=== PATIENT | female | born 1950 | race Caucasian/White ===

== ENCOUNTER 2024-09-16 01:00 | Observation (INO) | payer MEDICARE, OTHER, SELFPAY ==
[2024-09-15 19:52] VITALS: BP 101/80
[2024-09-15 20:02] VITALS: BP 137/72; BMI 17.7
[2024-09-15] MEDS: NSS 1000 IV (20:43)
[2024-09-15 20:55] LABS: ALT (SGPT) 25 U/L (0-35); AST (SGOT) 34 U/L (14-36); Albumin 4.9 g/dl (3.5-5.0); Alkaline Phosphatase 55 U/L (38-126); Blood Urea Nitrogen 16 mg/dl (7-17); Calcium 9.9 mg/dl (8.4-10.2); Carbon Dioxide 24 mmol/L (22-30); Chloride 104 mmol/L (98-107); Estimated Creatinine Clearance 60 ml/min; Glucose 116 mg/dl (70-99); Lipase 216 U/L (23-300); Potassium 4.6 mmol/L (3.5-5.1); Sodium 141 mmol/L (135-145); Total Protein 7.9 g/dl (6.3-8.2); eGFR > 60.00
[2024-09-15 21:00] VITALS: BP 120/66
[2024-09-15 21:11] LABS: Troponin I 0.044 ng/ml
[2024-09-15 21:27] LABS: % Basophils 0.3 % (0-2); % Eosinophils 0.8 % (0-6); % Immature Granulocytes 0.3 % (0-0.5); % Lymphocytes 4.4 % (20.5-51.1); % Monocytes 6.4 % (1.7-9.3); % Neutrophils 87.8 % (42.2-75.2); Absolute Basophils 0.1 10^3/uL (0-0.2); Absolute Eosinophils 0.2 10^3/uL (0-0.7); Absolute Immature Granulocytes 0.1 10^3/uL (0-0.05); Absolute Lymphocytes 0.8 10^3/uL (1.2-3.4); Absolute Monocytes 1.1 10^3/uL (0.1-0.6); Absolute Neutrophils 15.7 10^3/uL (1.4-6.5); Hematocrit 45.6 % (37.0-47.0); Hemoglobin 14.9 g/dL (12.0-16.0); Mean Corp Hgb Conc. 32.7 g/dL (33.0-37.0); Mean Corpuscular Hgb 31.5 pg (27.0-31.0); Mean Corpuscular Volume 96.4 fL (81.0-99.0); Mean Platelet Volume 9.7 fL (7.4-10.4); Nucleated Red Blood Cells % 0 %; Platelet Count 263 10^3/uL (130-400); Red Blood Cell Count 4.73 10^6/uL (4.20-5.40); Red Cell Dist. Width 12.3 % (11.5-14.5); White Blood Cell Count 17.9 10^3/uL (4.8-10.8)
--- NOTE | 2024-09-15 21:33 | ED.GENMED ---
History of Present Illness
General
Chief Complaint: Abdominal Symptoms
Source: patient
Exam Limitations: none
Time Seen by Provider: 09/15/24 21:22
Nursing documentation reviewed up to this point in time: agreed with
History of Present Illness
History of Present Illness:
Patient is a 74 old female who presents to the ER for evaluation. Patient reports she recently got back from [place] on Monday 4 days ago when she walked into her house she' saw people in my house.' She reports some people' did not have faces,'
'there faces were covered with pillows.' She tells me she is not sure if she was hallucinating. She remembers' telling the mall to leave.' Since then she has been sleeping a lot and he was up for 17 hours the other night but did wake up with
diarrhea and because she has not felt right she came to the ER. She had a syncopal episode in triage. She does remember feeling like she was going to pass out while she was in triage.
She denied any chest pain prior to episode and denies any chest pain now.
I spoke with daughter on the phone who reports pt did not feel well today and complained of stomach pain and had vomiting and diarrhea.
Daughter also mentions and patient does agree that she had mosquito bites or little red bumps that she thought were mosquito bites while in [place] they have currently resolved.
Patient denies any fever or chills at home. She denies any headache neck pain back pain rash. Daughter does report the patient either seem delusional or was hallucinating when she first got back into her house from the airport on Monday night
and thought she saw people in her house.
Review of Systems
Review of Systems
Allergies reviewed?: Yes
Other source history: family (( I spoke with daughter over the phone )
All Other Systems: ROS reviewed and negative except as documented in HPI and ROS
Constitutional: Reports fatigue ('feels tired' ); Denies fever
EENT: Reports no symptoms
Respiratory: Reports no symptoms
Cardiac: Reports no symptoms
ABD/GI: Reports diarrhea; Denies abdominal pain
Musculoskeletal: Reports no symptoms
Skin: Reports other (pt had 'bug bite' to back resolved now )
Psychiatric: Reports hallucinations (pt reported she believes she was hallucinating several nights ago )
Phy Exam
General Physical Exam
General Presentation: no apparent distress
General age: appears stated age
General Skin: warm and dry
General Habitus: elderly
General Mental: alert
General Hydration: dry mucous membranes
Cardiovascular Exam
Cardiovascular Exam: regular rate/rhythm, no murmur and normal peripheral pulses
Pulmonary Exam
Pulmonary Exam: lungs clear and no respiratory distress
Gastrointestinal Exam
Gastrointestinal Exam: normal bowel sounds, non tender and soft
Neurological Exam
Neurological Exam: alert and oriented x3
Bam Coma Scale
Eye Opening: Spontaneous
Verbal Response: Oriented
Motor Response: Obeys Commands
GCS Total Score: 15
Musculoskeletal Exam
Musculoskeletal Exam: full ROM
Skin Exam
Skin Exam: normal color and warm/dry
Psychiatric Exam
Psychiatric Exam: normal mood/affect
Course
Orders/Labs/Results
Orders:
Orders
09/15/24 20:08
Electrocardiogram (*1) Urgent
Reason for Study: Syncope
EKG- Treatment ONCE
Comprehensive Metabolic Panel Urgent
Lipase Urgent
09/15/24 20:09
Troponin I Urgent
09/15/24 20:43
0.9% Sodium Chloride 1000 ml [Nss] 1,000 ml IV BOLUS
09/15/24 21:21
Complete Blood Count/With Diff Urgent
09/15/24 21:48
UA Reflex to Culture [Urinalysis Reflex To Culture] Urgent
Date Specimen was Collected: 09/15/24
Time Specimen was Collected: 22:24
09/15/24 21:49
CT Head W/o Iv Contrast Urgent
Comment:
Reason For Exam: change in ms
09/15/24 22:03
Lactic Acid Urgent
09/15/24 22:27
C DIFF [C difficile Antigen & Toxins] Urgent
LARISA Source: Feces/Stool
Specimen Description:
Date Specimen was Collected: 09/15/24
Time Specimen was Collected: 22:24
Norovirus by PCR Urgent
LARISA Source: ST
Specimen Description:
Date Specimen was Collected: 09/15/24
Time Specimen was Collected: 22:24
Comment: ADD ON
Stool Culture Urgent
LARISA Source: Feces/Stool
Specimen Description:
Date Specimen was Collected: 09/15/24
Time Specimen was Collected: 22:24
09/15/24 22:48
Ondansetron Injectable [Zofran] 4 mg IV NOW STA
09/15/24 23:00
Add On- LAB Urgent
Tests Added?: sed rate ,crp
09/15/24 23:09
Procalcitonin Urgent
PCT Algorithmm Indication: Sepsis
Blood Culture Q30M
LARISA Source: Blood/Venous
Specimen Description:
Blood Culture Q30M
LARISA Source: Blood/Venous
Specimen Description:
09/15/24 23:49
CefTRIAXone [Rocephin] 1,000 mg IV NOW STA
09/15/24 23:52
COVID-19 Antigen Urgent
Source: Nasal Swab
Blood Parasites Urgent
LARISA Source: Blood/Venous
Specimen Description:
Influenza A+B Rapid Molecular Urgent
LARISA Source: Nasal Swab
Specimen Description:
09/16/24 00:35
Admit/Transfer Patient As Directed
Co-Sign Provider:
Level of Care: Observation services
Assign to:: Telemetry
Physician / Group: Ricki
Diagnosis: Altered Mental Status
Reason for Telemetry: Arrhythmia
Date to Stop Telemetry: 09/19/24
Time to Stop Telemetry: 11:00
Reason for Hospitalization: Altered Mental Status
Expected length of stay greater than two midnights?: Yes
ELOS- Estimated Length of Stay in days: 3
I certify the patient meets the requirements for IP care: Yes
PRN Pain Medication Management As Directed
May give lesser potent ordered pain med per pt: Yes
preference::
Protocol:: Medication orders for pain may be administered in a
manner that supports deferring to patient preference
when the pt is:
- Requesting an ordered lesser potent pain medication.
Least to most potent pain medications are defined
as: acetaminophen < NSAID < tramadol < opioids
(morphine, oxycodone, hydromorphone).
- Requesting a lesser dose of the same medication IF
ORDERED.
- Requesting a less intrusive route of administration
if both routes are prescribed by the provider (PO <
IV).
09/16/24 00:36
Code Status As Directed
Resuscitation Status: Full Code
09/16/24 01:25
0.9% Sodium Chloride 1000 ml [Nss] 1,000 ml IV 100 mls/hr
Acetaminophen [Tylenol] 650 mg PO Q4HPRN PRN
Ondansetron Injectable [Zofran] 4 mg IV Q6HPRN PRN
09/16/24 01:25
INFECTIOUS DISEASE CONSULT Routine
Consulting Provider: Iveth Corcoran
Was physician already notified: Yes
Reason for consult: Altered Mental Status
Activity As Directed
Activity Level: Ambulate
With Assistance
EKG with chest pain [ECG as needed] As Directed
ECG as needed for:: Chest Pain
I/O [Intake/ Output] As Directed
Frequency: Per unit guidelines
Neurological Checks As Directed
Frequency: q4h
Orthostatic Vital Signs As Directed
Orthostatic VS Frequency: BID
Pneumatic Compression Sleeves As Directed
Type: Knee high
Vital Signs As Directed
Frequency: Per unit guidelines
Weight As Directed
Frequency: Daily
Oxygen Therapy [O2 Therapy] [RESP] Routine
Titrate/Wean O2 to maintain O2 sat greater than (%): 94
Ot Eval And Treat Routine
PT Consult [Pt Eval And Treat] Routine
Activity Level: Ambulate
With Assistance
DX Deep Vein Thrombosis Video Routine
09/16/24 02:08
TSH Reflex To Free T4 Routine
Troponin I Q6H
09/16/24 06:00
EKG [Electrocardiogram (*1)] IN AM
Reason for Study: Chest Pain
Regular
At Your Request: Full Participation
Oral Supplement (If unsure of flavor order apple or vanilla): Ensure Enlive Vanilla
Supplement Frequency: Daily
09/16/24 07:36
Complete Blood Count/No Diff IN AM
Troponin I Q6H
Blood Parasites IN AM
LARISA Source: Blood/Venous
Specimen Description:
Comment: Second slide / intentional repeat please.
09/16/24 13:12
Troponin I Q6H
09/16/24 18:00
Enoxaparin Sodium [Lovenox] 40 mg SC QPM
09/16/24 22:00
CefTRIAXone [Rocephin] 2,000 mg IV Q24H
09/19/24 11:00
DC Protocol for Telemetry ONCE
Abnormal Lab Results
09/15/24 09/15/24 09/15/24
20:08 20:09 21:21
WBC 17.9 H 10^3/uL
(4.8-10.8)
MCH 31.5 H pg
(27.0-31.0)
MCHC 32.7 L g/dL
(33.0-37.0)
Abs Immat Gran (auto) 0.1 H 10^3/uL
(0-0.05)
Absolute Neuts (auto) 15.7 H 10^3/uL
(1.4-6.5)
Absolute Lymphs (auto) 0.8 L 10^3/uL
(1.2-3.4)
Absolute Monos (auto) 1.1 H 10^3/uL
(0.1-0.6)
Neutrophils % 87.8 H %
(42.2-75.2)
Lymphocytes % 4.4 L %
(20.5-51.1)
Glucose 116 H mg/dl
(70-99)
Troponin I 0.044 H* ng/ml
09/15/24 21:21
09/15/24 20:08
Vital Signs
Initial and Last Documented VS:
Initial Vital Signs
Temp Pulse Resp BP Pulse Ox
98.4 F 96 18 101/80 98
09/15/24 19:52 09/15/24 19:52 09/15/24 19:52 09/15/24 19:52 09/15/24 19:52
Last Documented Vital Signs
Temp Pulse Resp BP Pulse Ox
98.4 F 83 17 111/56 96
09/16/24 12:04 09/16/24 12:04 09/16/24 12:04 09/16/24 12:04 09/16/24 12:04
Food Truck Caterer consulted with Physician
Food Truck Caterer consulted with physician?: Yes
Name of Physician Consulted: DR Jiménez
MDM/Problems Addressed
Differential Diagnosis Includes:
Not limited to infection, sepsis, encephalitis, less likely meningitis, colitis, influenza, COVID
MDM/Problems Addressed:
Patient is document is a 74-year-old female who recently came back from [facility] 4 days ago and had hallucinations. Since then she is felt very fatigued and doing a lot of sleeping. She had nausea vomiting abdominal pain today prior to
arrival and presented via EMS and had a syncopal episode in triage. She did feel like she was going to have a syncopal episode and reports she felt lightheaded while in triage. She presents awake alert she is able to give history. She denies any
headache recent fever chills. She denies any abdominal pain now her abdomen is soft and nontender.
She appears dehydrated however chemistries are unremarkable. She is afebrile however her white count is elevated her lactic is negative. Patient denies any chest pain no acute findings on EKG her troponin is elevated no prior cardiac history.
She denies any headache fever chills. There is no meningismus or photophobia on exam.
Case discussed with ED physician. Case discussed with infectious disease on-call. Blood cultures x 2 were ordered lactic was done and negative. Will add COVID and flu. Stool culture was sent. Urine is done and pending. CT head negative. Will
check blood parasite smear.
*Radiology
Radiology exam reviewed: radiology read reviewed
*Pulse Oximetry
Patient hypoxic: no
*EKG
Interpreted by ED Provider?: Yes
Heart Rate: 88
Rate: normal
Rhythm: sinus
Ischemia: no ischemia
*Critical Care Note
Total Time (30-74mins, 75-104mins- exclusive of procedures): Not Applicable
Patient Management
Discussion with other providers: [employer] (ID : DR Corcoran)
ED Attending Note
-
Portions of this chart may have been created with voice recognition software.� Occasional wrong word or��sound alike� substitutions may have occurred due to the inherent limitations of voice recognition software.
Discharge Plan
Departure
Patient Disposition: Admit
Date of Disposition: 09/16/24
Time of Disposition: 00:14
Admit to: Med/Surg
Admit to doctor: hospitalist
Presentation/result/management discussed w/ accepting MD/DO: Hospitalist
Patient with high blood pressure during this ER visit?: No
Condition: Fair
Covid-19: Not Applicable
Discharge Problem:
change in mental status, Elevated troponin
Interventions
Interventions:
*Risk Screen - Suicide Last Done: 09/15/24 20:02
*General Assessment Last Done: 09/15/24 19:52
*Neglect/Abuse Screening Last Done: 09/15/24 20:02
ED- Fall Risk Assessment Last Done: 09/15/24 20:02
*ED COVID-19 Vaccine History Last Done: 09/15/24 20:02
*Nursing Disposition Last Done: 09/16/24 01:30
JS-Ffqgbl-Jndcfaomle Assessment Last Done: 09/15/24 20:02
Discharge Date and Time
Discharge Date/Time: 09/16/24 01:30
[2024-09-15 22:00] VITALS: BP 134/61
[2024-09-15 22:22] LABS: Lactic Acid 1.2 mmol/L (0.7-2.0)
[2024-09-15] MEDS: ZOFRAN 4 MG IV (22:52)
[2024-09-15 23:00] VITALS: BP 102/83
[2024-09-15] MEDS: ROCEPHIN 1000 MG IV (23:55)
[2024-09-16] VITALS (12 sets, daily range): BP systolic 108–151; BP diastolic 49–75; PULSE 82–109; O2SAT 98; BMI 17.7
[2024-09-16 00:08] LABS: Procalcitonin < 0.05 ng/ml (0.0-0.25)
[2024-09-16 00:26] LABS: COVID-19 Antigen Negative (Negative)
--- NOTE | 2024-09-16 00:52 | HPS.HSE ---
Family Physician
-
Family Physician: Judith Borges
Chief Complaint
-
Hallucinations / Fatigue
History of Present Illness
Patient is a 74y F with PMH significant for dyslipidemia who presents to ED complaining of hallucinations, weakness and N/V/D. Patient recently traveled to [facility] from 08/31 - 09/11. She notes that she received no vaccinations prior
to her trip and took no malaria prophylaxis during her stay. She states she spoke with a physician prior to travel and was informed no areas she would visit were endemic with malaria. Patient states that she was bitten on the back of the neck on
her first day in [place] by some biting insect - presumably mosquitos. She did travel into the countryside during her stay. She denies any unusual / exotic foods. She was very careful about not drinking tap water during her stay. Patient states
that she felt well her entire time on vacation.
She flew home on 09/11. On her way home from the airport she got a 'funny feeling' about her sprinkler driver and exited the car service somewhere in [facility]. Her daughter arranged for another car service to pick her up and bring her home.
Upon entering her home on Monday evening, patient noted that 'there were a lot of people there. No one I knew.' She noted that the people had featureless faces and ultimately realized that she must be hallucinating. She yelled at the people to
leave and they did. She was able to get to sleep and states that she felt fairly normal the following day.
She was with family on Monday when they celebrated Thanksgiving. She also felt well most of that day - though she states she felt very tired towards the evening. She slept 18 hours Monday into Monday, waking around 2PM.
She slept Monday until 5PM. Monday evening she began to have nausea and states that she had multiple episodes of non-bloody emesis and watery diarrhea at home. She called EMS and was brought to the ED for further evaluation.
In triage, patient was noted to have brief syncopal episode.
At present she is resting comfortably and has no specific complaints.
She denies headache, photophobia, fevers / chills, cough / SOB, abdominal pain, urinary symptoms, rash, joint pain, etc.
Patient states that she is on 'three medicines for cholesterol' though she cannot recall the names / doses.
Patient notes that she wore a scopolamine patch for her flights on 08/31 and again on 09/11. She took no other medication specifically for her trip.
Patient reports that she lost about 6 pounds during her vacation according to her home scale.
Medical History
Past Medical History
Past Medical History: Reports Other
Additional Past Medical History:
Dyslipidemia
Ovarian Cyst
Past Surgical History: Reports Other
Additional Past Surgical History:
Robotic Ovarian Cystectomy
Social History
Tobacco: Non-smoker
Alcohol: Occasional
Drug: None
Family History
Family History: Not pertinent
Allergies / Home Medications
Allergies reflects when Allergies were last updated in [employer].
Home Medications with original date entered in [employer]
Allergy/Medication List:
Allergies
Allergy/AdvReac Type Severity Reaction Status Date / Time
No Known Allergies Allergy Unverified 09/15/24 19:52
Home Medications
Unobtainable 09/16/24
Patient cannot recall the names / doses of her 3 current prescription medications.
Review of Systems
-
History Source: Patient
A 12 point ROS was completed and negative except as noted: Yes
Constitutional: Reports Weight Loss and Fatigue; Denies Fever or Chills
EENT: Denies Sore Throat
Respiratory: Denies Cough or Trouble Breathing
Cardiac: Reports Syncope; Denies Chest Pain or Palpitations
Abdomen/GI: Reports Nausea, Vomiting and Diarrhea; Denies Abdominal Pain, Bloody Stools, Black Stools or Anorexia
: Denies Dysuria, Frequency or Flank Pain
Musculoskeletal: Denies Joint Pain or Edema
Neurological: Reports Dizzy; Denies Headache, Weakness or Numbness
Psych: Reports Audio or Visual Hallucinations; Denies Depression or Anxiety
Physical Exam
Vital Signs
Vital Signs
Temp Pulse Resp BP Pulse Ox
98.4 F 84 16 129/67 98
09/15/24 19:52 09/16/24 00:01 09/16/24 00:01 09/16/24 00:01 09/16/24 00:01
Physical Exam
General: Other (Thin 74y F in no acute distress.)
HEENT: PERRLA and Other (Dry MM. Neck supple. No adenopathy.)
Respiratory: Clear; No Wheezes, Rales or Rhonchi
Cardiac: S1/S2 and Regular Rhythm; No Murmur
GI: Soft, Non Tender, Non Distended and Normal Bowel Sounds
Musculoskeletal: No Clubbing, No Cyanosis and No Edema
Neuro: Awake, Alert and Nonfocal/grossly intact
Laboratory Results
-
09/15/24 21:21
09/15/24 20:08
Laboratory Results
Lactic Acid 1.2 mmol/L (0.7-2.0) 09/15/24 22:03
Total Bilirubin 1.0 mg/dl (0.2-1.3) 09/15/24 20:08
AST 34 U/L (14-36) 09/15/24 20:08
ALT 25 U/L (0-35) 09/15/24 20:08
Alkaline Phosphatase 55 U/L (38-126) 09/15/24 20:08
Troponin I 0.044 ng/ml H* 09/15/24 20:09
Lipase 216 U/L (23-300) 09/15/24 20:08
Impression/Plan
-
A/P: Patient is a 74y F with PMH significant for dyslipidemia who presents to ED for evaluation of hallucinations, confusion, fatigue and N/V/D.
Acute Mental Status Change
Visual Hallucinations
Fatigue / Weight Loss
N/V/D
Recent Travel
Leukocytosis
- Admit for further evaluation and treatment.
- Unclear etiology of her symptoms with hallucinations +/- confabulation - very odd story regarding her trip home from the airport.
- Afebrile, marked fatigue and with GI symptoms beginning today.
- CT head with atrophy but otherwise unremarkable. Labs unremarkable excepting leukocytosis.
- In [place] and [place] recently - including rural areas. No travel vaccinations and no malaria prophylaxis.
- Check parasite smear tonight and in AM.
- Blood cultures, stool cultures, viral panels, etc.
- Monitor for any new / focal symptoms or complaints.
- IVF support for clinical hypovolemia - though labs are unimpressive.
- ID recommendations appreciated. Formal eval in the AM.
- ? if presentation is new recognition of cognitive impairment / Alzheimer's / etc unmasked or exacerbated by recent travel, 'jet lag', etc?
DVT Prophylaxis: Lovenox
Code Status: Full
--- NOTE | 2024-09-16 01:20 | PTCARENOTE ---
Pt arrived from ED via stretcher, ambulated independently to bed. Aoox3, cooperative. denies dizziness, sob or pain. Oriented to room. Call lebron within reach.
[2024-09-16] MEDS: NSS 1000 IV ×3 (01:53→22:49)
[2024-09-16 02:46] LABS: Troponin I 0.037 ng/ml
[2024-09-16 03:24] LABS: TSH Reflex To Free T4 0.22 uIU/ml (0.47-4.68)
[2024-09-16 03:54] LABS: Free T4 1.35 ng/dl (0.78-2.19)
[2024-09-16 08:06] LABS: Hematocrit 33.8 % (37.0-47.0); Hemoglobin 11.8 g/dL (12.0-16.0); Mean Corp Hgb Conc. 34.9 g/dL (33.0-37.0); Mean Corpuscular Hgb 32.5 pg (27.0-31.0); Mean Corpuscular Volume 93.1 fL (81.0-99.0); Mean Platelet Volume 9.9 fL (7.4-10.4); Platelet Count 209 10^3/uL (130-400); Red Blood Cell Count 3.63 10^6/uL (4.20-5.40); Red Cell Dist. Width 12.5 % (11.5-14.5); White Blood Cell Count 12.8 10^3/uL (4.8-10.8)
[2024-09-16 08:14] LABS: Troponin I 0.035 ng/ml
--- NOTE | 2024-09-16 08:35 | W.PN.HOSP.TC ---
Today's Communication/Plan
-
Monitor
Assessment / Plan
Assessment / Plan
74y F with PMH significant for dyslipidemia who presents to ED for evaluation of hallucinations, confusion, fatigue and N/V/D.
Acute Mental Status Change
Visual Hallucinations
Fatigue / Weight Loss
N/V/D
Recent Travel
Leukocytosis
- Unclear etiology of her symptoms with hallucinations +/- confabulation - very odd story regarding her trip home from the airport.
- Afebrile, marked fatigue and with GI symptoms
- CT head with atrophy but otherwise unremarkable. Labs unremarkable excepting leukocytosis.
- In [place] and [place] recently - including rural areas. No travel vaccinations and no malaria prophylaxis.
- Follow-up parasite smear, blood cultures, viral panels, ID recommendations
- ? if presentation is new recognition of cognitive impairment / Alzheimer's / etc unmasked or exacerbated by recent travel, 'jet lag', etc?
DVT Prophylaxis: Lovenox
Code Status: Full
Physical Exam
General: No acute distress
HEENT: Normocephalic, Atraumatic, EOMI, MMM
Respiratory: Clear to Auscultation bilaterally
Cardiac: Normal S1/S2, Regular Rate and Rhythm
GI: Soft, Nontender, Nondistended, Normal Bowel Sounds
Extremities: No Clubbing, Cyanosis, or Edema
Neuro: Nonfocal/Grossly Intact
Psych: Calm, Cooperative
Derm: No Visible lesions
Anticipated Discharge: Within 24 hours
Subjective/Interval History
-
Date of Service: September 16, 2024
Myalgias resolved. No recurrence of hallucinations. No fever. No chest pain, no shortness of breath.
Objective Data
-
Labs:
Laboratory Results
09/15/24 09/15/24 09/16/24
20:08 21:21 07:36
WBC Cancelled 17.9 H 12.8 H
Hgb Cancelled 14.9 11.8 L D
Hct Cancelled 45.6 33.8 L
Plt Count Cancelled 263 209 D
Sodium 141 Pending
Potassium 4.6 Pending
Chloride 104 Pending
Carbon Dioxide 24 Pending
BUN 16 Pending
Creatinine 0.6 Pending
Glucose 116 H Pending
Calcium 9.9 Pending
Total Bilirubin 1.0 Pending
AST 34 Pending
ALT 25 Pending
Alkaline Phosphatase 55 Pending
Vital Signs:
Vital Signs
Temp Pulse Resp BP Pulse Ox
98.1 F 84 17 124/55 96
09/16/24 03:23 09/16/24 03:23 09/16/24 03:23 09/16/24 03:23 09/16/24 03:23
[2024-09-16 08:38] LABS: ALT (SGPT) 18 U/L (0-35); AST (SGOT) 24 U/L (14-36); Albumin 3.4 g/dl (3.5-5.0); Alkaline Phosphatase 32 U/L (38-126); Blood Urea Nitrogen 15 mg/dl (7-17); Calcium 8.3 mg/dl (8.4-10.2); Carbon Dioxide 27 mmol/L (22-30); Chloride 104 mmol/L (98-107); Estimated Creatinine Clearance 60 ml/min; Glucose 87 mg/dl (70-99); Potassium 4.2 mmol/L (3.5-5.1); Sodium 138 mmol/L (135-145); Total Bilirubin 0.7 mg/dl (0.2-1.3); Total Protein 5.9 g/dl (6.3-8.2); eGFR > 60.00
--- NOTE | 2024-09-16 09:17 | PTOTSP ---
pt currently demonstrates ability to complete simple ADLs, functional transfers, ambulation with supervision to no assistance. pt demonstrates no acute OT needs, will sign off.
--- NOTE | 2024-09-16 09:22 | PTOTSP ---
PATIENT ABLE TO MOBILIZE INDEPENDENTLY ON LEVEL SURFACES WELL ELEVATIONS WITHOUT COMPLAINTS OF LIGHTHEADEDNESS OR DIZZINESS. VITALS STABLE, RN AWARE. PATIENT REQUIRING NO FURTHER ACUTE CARE SKILLED P.T. AT THIS TIME.
--- NOTE | 2024-09-16 10:21 | CM ---
Patient seen bedside.
IA completed.
Patient lives alone in a 2 story home.
Independent prior to admission.
Drives, retired.
patient has not had VN or skilled rehab in the past.
PT eval completed, no recommendations.
RAMOS form reviewed.
Patient plans on Ubering home.
PCP: Dr Borges
Pharmacy: [facility]
Plan: home no needs.
--- NOTE | 2024-09-16 10:52 | CON.ID ---
Addendum entered and electronically signed by Gifty Dutta MD 09/16/24 15:57:
I personally performed a history and physical exam of the patient and discussed management with the resident. I reviewed the resident's note and agree with the documented findings and plan of care HPI/CC.
74 yo female recent travel to [facility] and [facility] 08/31 to 09/11 with tour group. She did not receive any pre-travel vaccines nor malaria prophylaxis. + mosquito bites. Pt adherent to food safety. No water exposure. No animal bites. Not rainy
season. Did not visit any [place]. Upon return had episode of hallucination that evening. Of note, pt used scopolamine patch for motion sickness on her travel back to [place]. Spent Thanksgiving with family 09/13 then slept for 20hours. She then
woke up with N/V/D. No abd pain. No blood in stool. No one else if family ill. No fevers/chills. No SANDOVAL. No rash. No joint pain. Feels well. No further hallucinations. Diarrhea resolved. On presentation, WBC 17.9, CMP normal.
# Return traveler from [facility]; no pre-travel vaccines or malaria prophylaxis.
# Suspect traveler's diarrhea
# Leukocytosis - trending down
- C. diff neg
- Follow stool cultures
- Follow blood cx's
-Parasite smear x 2 neg to date.
- Transition ceftriaxone to azithromycin 500mg po qd x 2 more doses
- Follow wbc.
# s/p Syncopal episode - from dehydration
# Transient hallucination
-Suspect due to scopolamine patch
Discussed with Dr. Shakira Kendrick
Original Note:
Consultation
-
Date/Time Consultation Requested: 09/16/2024
Date/Time Consultation Performed: 09/16/2024
Requesting Provider: Db Robison DO
Performing Provider: Gifty Dutta MD
Reason for Consultation: Altered mental status
Chief Complaint / Past History
Chief Complaint
Confusion, hallucination
History of Present Illness
This is a 74-year-old female with past medical history of dyslipidemia, ovarian cyst who presents to ER 09/15/2024 complaining of hallucinations, weakness, nausea, vomiting and diarrhea. The patient recently traveled to [facility] and [facility] with
a tour group from 08/31 to 09/11. Prior to travel, the patient saw a physician who informed her of high risk of malaria infection. She received NO vaccinations prior to her trip and took no malaria prophylaxis during her stay at both countries.
The patient states she was bitten by mosquitoes multiple times on her first day in [place]. Although she made sure not to drink any tap water and drank only bottled water with NO ice during a trip. She did not eat any roadside foods. She ate
well-cooked seafood meals. Denied animal bites. She reports she felt well throughout the vacation with no acute complaints. She flew home 09/11 to celebrate Thanksgiving with her family. On returning back to [facility], she reports experiencing,
symptoms of dizziness, and episodes of seeing featureless faces. Patient states this episode occurred when she got home from the airport in the evening. She states there were a lot of people in her house. Although she states she did not know this
people, a lot of them had no faces. She realized she was hallucinating, and proceeded to sleep afterwards. She felt normal the next day and was able to celebrate Thanks with her family. She states she had no complaints, no episodes of
hallucination on . Later that night on 09/12 she reports sleeping for a total of 17 to 18 hours. Upon waking up, she started to experience nausea, vomiting and diarrhea. She reports episodes of nonbloody emesis and watery diarrhea
at home. Due to her multiple symptomatic episodes, she decided to call EMS to bring her to the ED for evaluation. She denies sick contacts in the household. She denies headaches, stiffness of neck, photophobia, fever, chills, cough, shortness of
breath, abdominal pain, palpitations, joint pain. She denied nausea, although she states she wore a scopolamine patch for flights to above countries and on return to the due to prior episodes of nausea while flying. She denies any medication
use during her trip except her cholesterol medication. On presentation to ER, patient was afebrile with blood pressure stable. Laboratory showed WBC 17.9. We are asked evaluate patient from an infectious disease standpoint.
Per nurse, patient's daughter states patient has a history of Paranoia and accusatory episodes ongoing for the past 4 years. Although, this is her first episode of visual hallucination.
Past History
Past Medical History: Other (Dyslipidemia, ovarian cyst)
Past Surgical History: Other (Ovarian cystectomy)
Allergy History:
No Known Allergies Allergy (Unverified 09/15/24 19:52)
Medications Reviewed: Yes
Current Antibiotics:
Ceftriaxone
Social History
Tobacco: Non-Smoker
Alcohol: Occasional
Drug: None
Review of Systems
Review of Systems
General: Negative Fever or Chills
HEENT: Negative Lymphadenopathy or Stiff Neck
Cardiovascular: Negative Chest Pain
Respiratory: Negative Dyspnea or Cough
Genital / Urological: Negative Dysuria
Endocrine: Fatigue
Musculoskeletal: Negative Joint Pain or Joint Swelling
Skin / Hair / Nails: Negative Rash
Neurological: Negative Headache
Vital Signs
Temp Pulse Resp BP Pulse Ox
98.5 F 85 17 130/56 97
09/16/24 07:45 09/16/24 07:45 09/16/24 07:45 09/16/24 07:45 09/16/24 07:45
Physical Exam
Physical Exam
Constitutional: No Acute Distress
Cardiovascular: Regular Rate and S1/S2
Pulmonary: Clear; Negative Wheezes, Rales or Rhonchi
Gastrointestinal: Soft, Non Tender and Non Distended
Extremities: Negative Edema or Clubbing
Neurological: AO x 3
Psychological: Calm
Lab / Diagnostic Study Results
09/16/24 07:36
09/16/24 07:36
Abs Immat Gran (auto) 0.1 10^3/uL (0-0.05) H 09/15/24 21:21
Absolute Neuts (auto) 15.7 10^3/uL (1.4-6.5) H 09/15/24 21:21
Absolute Lymphs (auto) 0.8 10^3/uL (1.2-3.4) L 09/15/24 21:21
Absolute Monos (auto) 1.1 10^3/uL (0.1-0.6) H 09/15/24 21:21
Absolute Basos (auto) 0.1 10^3/uL (0-0.2) 09/15/24 21:21
Immature Gran % 0.3 % (0-0.5) 09/15/24 21:21
Neutrophils % 87.8 % (42.2-75.2) H 09/15/24 21:21
Lymphocytes % 4.4 % (20.5-51.1) L 09/15/24 21:21
Monocytes % 6.4 % (1.7-9.3) 09/15/24 21:21
Eosinophils % 0.8 % (0-6) 09/15/24 21:21
Basophils % 0.3 % (0-2) 09/15/24 21:21
Lactic Acid 1.2 mmol/L (0.7-2.0) 09/15/24 22:03
Procalcitonin < 0.05 ng/ml (0.0-0.25) 09/15/24 23:09
Microbiology Results
Micro:
09/15/24 22:27 C. difficile GDH Antigen & Toxins - Final
Feces/Stool Negative for toxigenic C.difficile
- Pending
09/16/24 07:36 Blood Parasites Smear - Preliminary
Blood/Venous
09/15/24 23:52 Blood Parasites Smear - Preliminary
Blood/Venous
09/15/24 23:09 Blood Culture - Pending
Blood/Venous
09/15/24 23:09 Blood Culture - Pending
Blood/Venous
09/15/24 23:52 Influenza Types A & B (ROSIBEL) - Final
Nasal Swab Negative for Influenza A & B, NAAT
Negative results must be combined with clinical observations
and patient history.
Nucleic Acid Amplification test (NAAT)performed on the
[employer] platform.
09/15/24 22:27 Salmonella/Shigella Culture - Pending
Feces/Stool Campylobacter Culture - Pending
Shiga Toxin Test - Pending
Head CT without IV contrast 09/15/2024; no acute intracranial abnormality noted
Assessment / Plan
Assessment/plan
#Traveler's diarrhea
#Episode of visual hallucination
#Recent travel to [place] and [place] including rural areas
#Leukocytosis on presentation
-Visual hallucination possible due to Scopolamine patch use.
-Due to recent travel to malaria endemic area, check blood parasites smear.
-Check stool cultures, stool studies, C. difficile
-Flu, COVID-negative.
-Initiated on ceftriaxone in the ED
-At this time, will treat with Azithromycin 500 mg for an additional 2 days to complete 3 days of abx tx for traveler's diarrhea.
--- NOTE | 2024-09-16 13:48 | PTCARENOTE ---
This RN Spoke to patients daughter and primary contact, Kirstin. Patients daughter states that the paranoia and accusations from the patient have been going on for a couple of years now, however, hallucinations are new. Patient does not have a
diagnosed psych hx per daughter and daughter states patient has never seen a psych MD before. Hospitalist and ID made aware.
[2024-09-16 14:26] LABS: Troponin I 0.026 ng/ml
[2024-09-16] MEDS: ZITHROMAX 500 MG PO (14:40)
[2024-09-16 17:20] LABS: Vitamin B12 559 pg/ml (239-931)
[2024-09-16] MEDS: TYLENOL 650 MG PO (20:30)
--- NOTE | 2024-09-16 20:55 | PTCARENOTE ---
Pt woke up from sleep very anxious, shivering and crying c/o neck pain, leg pain and lower back pain, requesting to see a doctor. VS 151/75, 88, 22, T- 97.6, Pox 99% RA. Tylenol given, spent 1:1 time with pt, and screed person [employer] made aware. Pt fell
asleep shortly after. All above symptoms were resolved when pt woke up.
[2024-09-16 23:01] LABS: Urine Albumin Negative (Neg - Trace); Urine Bilirubin Negative (Negative); Urine Character Clear (Clear); Urine Color Straw; Urine Glucose Negative (Negative); Urine Ketone Negative (Negative); Urine Leukocyte 2+ (Negative); Urine Nitrite Negative (Negative); Urine Occult Blood 3+ (Negative); Urine Urobilinogen Negative (Neg - 1+)
[2024-09-16 23:22] LABS: Urine Squamous Cell 0-2 /LPF (Few)
[2024-09-16 23:23] LABS: Urine Bacteria Few (Negative)
[2024-09-17 02:56] VITALS: BP 151/80
[2024-09-17 05:18] VITALS: BMI 19.1
[2024-09-17 07:40] VITALS: BP 146/71
[2024-09-17 08:30] VITALS: BP 146/71
[2024-09-17] MEDS: NSS 1000 IV (08:41)
[2024-09-17] MEDS: ZITHROMAX 500 MG PO (08:42)
[2024-09-17 08:43] LABS: % Basophils 0.5 % (0-2); % Eosinophils 2.7 % (0-6); % Immature Granulocytes 0.9 % (0-0.5); % Monocytes 4.8 % (1.7-9.3); % Neutrophils 74.1 % (42.2-75.2); Absolute Eosinophils 0.2 10^3/uL (0-0.7); Absolute Immature Granulocytes 0.1 10^3/uL (0-0.05); Absolute Lymphocytes 1.1 10^3/uL (1.2-3.4); Absolute Monocytes 0.3 10^3/uL (0.1-0.6); Absolute Neutrophils 4.9 10^3/uL (1.4-6.5); Hematocrit 33.9 % (37.0-47.0); Hemoglobin 11.5 g/dL (12.0-16.0); Mean Corp Hgb Conc. 33.9 g/dL (33.0-37.0); Mean Corpuscular Volume 94.4 fL (81.0-99.0); Mean Platelet Volume 10.7 fL (7.4-10.4); Nucleated Red Blood Cells % 0 %; Platelet Count 198 10^3/uL (130-400); Red Blood Cell Count 3.59 10^6/uL (4.20-5.40); Red Cell Dist. Width 12.6 % (11.5-14.5); White Blood Cell Count 6.7 10^3/uL (4.8-10.8)
--- NOTE | 2024-09-17 08:45 | W.PN.HOSP.TC ---
Today's Communication/Plan
-
Discharge today
Assessment / Plan
Assessment / Plan
74y F with PMH significant for dyslipidemia who presents to ED for evaluation of hallucinations, confusion, fatigue and N/V/D.
Acute Mental Status Change
Visual Hallucinations 09/11/24
Transient confusion in hospital 09/16/24
-TSH mildly low, free T4 normal, B12 normal
-CT head with atrophy but otherwise unremarkable.
-Daughter informed nursing staff that patient tends to be paranoid at home
-No recurrence of hallucinations in the hospital, but she did have some confusion on the evening of 09/16/2024
-No confusion this morning, she is alert, awake, and eager for discharge
-Recommend she follows up with Dr. Silvino Birmingham for neuropsychiatric memory testing
-Offered to call her daughter, she states she does not want me to call her daughter
-Medically stable for discharge, follow-up with PCP in 1 week
Fatigue / Weight Loss
Traveler's diarrhea
- Appreciate ID input, parasite smear, blood cultures, viral panels, all negative
- She has completed 3 days of azithromycin, currently tolerating her diet
- Cleared by ID for discharge
DVT Prophylaxis: Lovenox
Code Status: Full
Physical Exam
General: No acute distress
HEENT: Normocephalic, Atraumatic, EOMI, MMM
Respiratory: Clear to Auscultation bilaterally
Cardiac: Normal S1/S2, Regular Rate and Rhythm
GI: Soft, Nontender, Nondistended, Normal Bowel Sounds
Extremities: No Clubbing, Cyanosis, or Edema
Neuro: Nonfocal/Grossly Intact
Psych: Calm, Cooperative
Derm: No Visible lesions
Anticipated Discharge: Today
Subjective/Interval History
-
Date of Service: September 17, 2024
Diarrhea resolved. No nausea, no vomiting. No fever.
Nursing staff reports patient was confused last night. When asked about this, she became visibly upset, and denied any confusion.
Objective Data
-
Labs:
Laboratory Results
09/17/24
06:58
WBC 6.7
Hgb 11.5 L
Hct 33.9 L
Plt Count 198
Vital Signs:
Vital Signs
Temp Pulse Resp BP Pulse Ox
98.6 F 80 16 146/71 96
09/17/24 07:40 09/17/24 07:40 09/17/24 07:40 09/17/24 07:40 09/17/24 07:40
I&O
09/16/24 09/17/24 09/18/24
06:59 06:59 06:59
Intake Total 2580 / 2580
Balance 2580 / 2580
--- NOTE | 2024-09-17 09:54 | W.PN.ID1 ---
Date of Service
Date of Service: September 17, 2024
Today's Communication
Completed abx.
Can dc home.
Assessment / Plan
# Return traveler from [place]; no pre-travel vaccines or malaria prophylaxis.
# Suspect traveler's diarrhea - resolved
# Leukocytosis - resolved
- C. diff neg
- blood cx's x 2 neg to datae
-Parasite smear x 2 neg to date.
- Completed 3 days of abx for traveller's diarrhea.
# Transient hallucination
-Suspect due to scopolamine patch
Can dc home.
Chief Complaint
-: Other
Subjective / Review of Systems
feels good today. no diarrhea
Vital Signs / Physical Exam
Vital Signs
Vital Signs
Temp Pulse Resp BP Pulse Ox
98.6 F 80 16 146/71 96
09/17/24 07:40 09/17/24 07:40 09/17/24 07:40 09/17/24 07:40 09/17/24 07:40
Physical Exam
Constitutional: No Acute Distress and Comfortable
Cardiovascular: Regular Rate and S1/S2
Pulmonary: Clear
Gastrointestinal: Soft, Non Tender, Non Distended and Normal Bowel Sounds
Extremities: Negative Edema
Neurological: AO x 3
Objective Data
Lab Data
Lab Results
09/17/24 06:58
09/16/24 07:36
Estimated Creat Clear 60 ml/min 09/16/24 07:36
Lactic Acid 1.2 mmol/L (0.7-2.0) 09/15/24 22:03
Total Bilirubin 0.7 mg/dl (0.2-1.3) 09/16/24 07:36
AST 24 U/L (14-36) 09/16/24 07:36
ALT 18 U/L (0-35) 09/16/24 07:36
Alkaline Phosphatase 32 U/L (38-126) L 09/16/24 07:36
Most recent labs reviewed.
Micro Results:
09/15/24 23:09 Blood Culture - Preliminary
Blood/Venous No Growth in 24 hours- Final report to follow
09/15/24 23:09 Blood Culture - Preliminary
Blood/Venous No Growth in 24 hours- Final report to follow
09/16/24 22:50 Urine Culture - Pending
Urine
09/16/24 07:36 Blood Parasites Smear - Final
Blood/Venous
09/15/24 23:52 Blood Parasites Smear - Final
Blood/Venous
09/15/24 22:27 C. difficile GDH Antigen & Toxins - Final
Feces/Stool Negative for toxigenic C.difficile
- Final
Negative for Norovirus GI and GII.
09/15/24 23:52 Influenza Types A & B (ROSIBEL) - Final
Nasal Swab Negative for Influenza A & B, NAAT
Negative results must be combined with clinical observations
and patient history.
Nucleic Acid Amplification test (NAAT)performed on the
[employer] platform.
09/15/24 22:27 Salmonella/Shigella Culture - Pending
Feces/Stool Campylobacter Culture - Pending
Shiga Toxin Test - Pending
Head CT without IV contrast 09/15/2024; no acute intracranial abnormality noted
Care Review
Plan reviewed with: Physician (Dr. Roger Kendrick)
--- NOTE | 2024-09-17 09:57 | W.DCSUMMARY ---
Discharge Summary
Discharge Data
Date of Admission: 09/16/24
Date of Discharge: 09/17/24
-
Pending Results: No
Hospital Course
Discharge diagnosis:
Traveler's diarrhea
Transient hallucinations prior to admission
Transient confusion in the hospital
Hospital course:
74-year-old female who [place] was admitted for nausea, vomiting, diarrhea, and myalgias. She also had transient hallucinations a few days prior to admission. Patient was seen in conjunction with ID. ID suspects
that she had traveler's diarrhea. She was treated with a full course of azithromycin. Parasite workup was negative. Her diarrhea resolved. She tolerated a diet.
Patient had transient hallucinations prior to hospital admission. ID suspects that this is due to the use of scopolamine patch. She did not have any recurrence of hallucinations.
During her hospitalization, she was noted to be confused during the evening. When asked about this, she became agitated and upset. Daughter reports to nursing staff that patient tends to be paranoid at home. Patient lives alone. She is 74 years
old, it is possible that she may have cognitive impairment suspicious for dementia, and could be sundowning. I recommended to her to follow-up with neuropsychiatry for memory testing. She did not want me to call her daughter and let her know.
Patient is medically stable for discharge. She needs to follow-up with her primary care doctor in 1 week, and neuropsychiatry in 1-2 weeks.
Disposition: Home self-care
Discharge planning: Required 50-minutes
Discharge Plan
-
Patient Disposition: Home (Routine Discharge)
Discharge Diagnosis/Procedures: Traveler's diarrhea, leukocytosis, transient hallucinations, transient confusion in hospital, syncope from dehydration
Condition: Fair
Diet: Regular
Activity: As tolerated
Driving Restrictions: As prior to admission
Activity Restrictions/Additional Instructions:
Recommend you get memory testing with Dr. Silvino Birmingham to obtain a baseline.
Please follow-up with your primary care provider in 1 week.
Referrals:
Judith Borges MD [Family Provider] - in one week
Silvino Birmingham PSY [Specified Professional Personl] - in one to two weeks
Prescriptions:
No Action
No Current Medications
0
Discharge Orders:
Discharge Patient (As Directed); Ordered 09/17/24
Ordered By: Juwan Kendrick
Discharge Date and Time
Discharge Date/Time: 09/17/24 10:52
Print Language: YAKUT
--- NOTE | 2024-09-17 10:08 | CM ---
Reviewed the chart notes and spoke with the patient at the bedside. Patient is discharged to home today. No needs identified. Patient will be taking an Uber home. CM continues to be available to patient/family and is monitoring medical plan for
needs at discharge.
Plan: Discharge to home today.
== END 2024-09-17 10:52 | disposition home or self-care (01) ==
LOC: 2 NORTH 01:00
PROVIDERS: Emergency Medicine; Nurse Practitioner; ADMITTING PHYSICIAN Hospitalist; ATTENDING PHYSICIAN Family Medicine; EMERGENCY PHYSICIAN Student in an Organized Health Care Education/Training Program; FAMILY PHYSICIAN Internal Medicine; OTHER PHYSICIAN Internal Medicine Infectious Disease
DX: R19.7 Diarrhea, unspecified (principal); R10.9 Unspecified abdominal pain; R44.1 Visual hallucinations; R55 Syncope and collapse; R11.2 Nausea with vomiting, unspecified; R53.83 Other fatigue; E86.0 Dehydration; E78.5 Hyperlipidemia, unspecified; D72.829 Elevated white blood cell count, unspecified; E86.1 Hypovolemia; G31.9 Degenerative disease of nervous system, unspecified; I49.1 Atrial premature depolarization; I51.7 Cardiomegaly; M79.10 Myalgia, unspecified site; R41.0 Disorientation, unspecified; R45.1 Restlessness and agitation; Z60.2 Problems related to living alone; Z11.52 Encounter for screening for COVID-19
CPT/HCPCS: 70450; 80053; 81003; 81015; 82248; 82607; 83605; 83690; 84145; 84439; 84443; 84484; 85025; 85027; 87015; 87040; 87045; 87046; 87077; 87086; 87207; 87324; 87427; 87449; 87502; 87798; 87811; 93005; 96361; 96374; 96375; 97116; 97162; 97165; 99285; G0378

== ENCOUNTER 2024-10-29 12:32 | Emergency (ER) | payer MEDICARE, OTHER, SELFPAY ==
[2024-10-29 12:45] VITALS: BP 143/82
[2024-10-29 12:57] LABS: % Basophils 1.3 % (0-2); % Eosinophils 3.2 % (0-6); % Immature Granulocytes 0.3 % (0-0.5); % Lymphocytes 25.4 % (20.5-51.1); % Monocytes 8.1 % (1.7-9.3); % Neutrophils 61.7 % (42.2-75.2); Absolute Basophils 0.1 10^3/uL (0-0.2); Absolute Eosinophils 0.2 10^3/uL (0-0.7); Absolute Lymphocytes 1.8 10^3/uL (1.2-3.4); Absolute Monocytes 0.6 10^3/uL (0.1-0.6); Absolute Neutrophils 4.3 10^3/uL (1.4-6.5); Hematocrit 39.9 % (37.0-47.0); Hemoglobin 13.5 g/dL (12.0-16.0); Mean Corp Hgb Conc. 33.8 g/dL (33.0-37.0); Mean Corpuscular Hgb 31.5 pg (27.0-31.0); Mean Corpuscular Volume 93.2 fL (81.0-99.0); Mean Platelet Volume 9.5 fL (7.4-10.4); Nucleated Red Blood Cells % 0 %; Platelet Count 260 10^3/uL (130-400); Red Blood Cell Count 4.28 10^6/uL (4.20-5.40); Red Cell Dist. Width 12.7 % (11.5-14.5); White Blood Cell Count 6.9 10^3/uL (4.8-10.8)
[2024-10-29 13:20] LABS: ALT (SGPT) 32 U/L (0-35); AST (SGOT) 31 U/L (14-36); Albumin 4.5 g/dl (3.5-5.0); Alkaline Phosphatase 39 U/L (38-126); Blood Urea Nitrogen 13 mg/dl (7-17); Calcium 9.3 mg/dl (8.4-10.2); Carbon Dioxide 32 mmol/L (22-30); Chloride 100 mmol/L (98-107); Glucose 151 mg/dl (70-99); Potassium 4.4 mmol/L (3.5-5.1); Sodium 139 mmol/L (135-145); Total Bilirubin 0.8 mg/dl (0.2-1.3); Total Protein 7.1 g/dl (6.3-8.2); eGFR > 60.00
[2024-10-29 14:39] VITALS: BP 140/75
--- NOTE | 2024-10-29 17:32 | ED.GENMED ---
History of Present Illness
<Nestor Gale PA-C - Last Filed: 10/29/24 18:54>
General
Chief Complaint: Dizziness
Source: patient
Exam Limitations: none
Time Seen by Provider: 10/29/24 17:13
History of Present Illness
History of Present Illness:
74-year-old female lives by herself presents via EMS with headache starting yesterday with an episode of dizziness today. She was walking and felt a spinning sensation. She was here about a month and a half ago for a syncopal workup.
Phy Exam
<Nestor Gale PA-C - Last Filed: 10/29/24 18:54>
Physical Exam
Physical Exam:
General: Well developed female NAD
HEENT: NC/AT
Heart: RRR, no murmurs
Lungs: CTA
Neuro: And oriented no facial asymmetry no nystagmus finger-nose intact good strength to the upper and lower extremities no dysarthria or aphasia
Extremities: No cyanosis or edema
Abdomen is soft nontender nondistended no guarding or rebound
Course
<Nestor Gale PA-C - Last Filed: 10/29/24 18:54>
Orders/Labs/Results
Orders:
Orders
10/29/24 12:33
Electrocardiogram (*1) Urgent
Reason for Study: Vertigo / Dizzy
EKG- Treatment ONCE
10/29/24 12:52
Complete Blood Count/With Diff Urgent
Comprehensive Metabolic Panel Urgent
10/29/24 17:24
CT Head W/o Iv Contrast Urgent
Comment:
Reason For Exam: headache, dizzy
Acetaminophen [Tylenol] 650 mg PO NOW STA
Abnormal Lab Results
10/29/24
12:52
MCH 31.5 H pg
(27.0-31.0)
Carbon Dioxide 32 H mmol/L
(22-30)
Creatinine 0.5 L mg/dL
(0.6-1.0)
Glucose 151 H mg/dl
(70-99)
10/29/24 12:52
10/29/24 12:52
Vital Signs
Initial and Last Documented VS:
Initial Vital Signs
Temp Pulse Resp BP Pulse Ox
98.6 F 97 20 143/82 100
10/29/24 12:45 10/29/24 12:45 10/29/24 12:45 10/29/24 12:45 10/29/24 12:45
Last Documented Vital Signs
Temp Pulse Resp BP Pulse Ox
98.0 F 76 20 142/76 98
10/29/24 14:39 10/29/24 21:00 10/29/24 21:00 10/29/24 21:00 10/29/24 21:00
<Dorothy Galindo PA-C - Last Filed: 10/29/24 22:37>
Orders/Labs/Results
Orders:
Orders
10/29/24 12:33
Electrocardiogram (*1) Urgent
Reason for Study: Vertigo / Dizzy
EKG- Treatment ONCE
10/29/24 12:52
Complete Blood Count/With Diff Urgent
Comprehensive Metabolic Panel Urgent
10/29/24 17:24
CT Head W/o Iv Contrast Urgent
Comment:
Reason For Exam: headache, dizzy
Acetaminophen [Tylenol] 650 mg PO NOW STA
Abnormal Lab Results
10/29/24
12:52
MCH 31.5 H pg
(27.0-31.0)
Carbon Dioxide 32 H mmol/L
(22-30)
Creatinine 0.5 L mg/dL
(0.6-1.0)
Glucose 151 H mg/dl
(70-99)
10/29/24 12:52
10/29/24 12:52
Vital Signs
Initial and Last Documented VS:
Initial Vital Signs
Temp Pulse Resp BP Pulse Ox
98.6 F 97 20 143/82 100
10/29/24 12:45 10/29/24 12:45 10/29/24 12:45 10/29/24 12:45 10/29/24 12:45
Last Documented Vital Signs
Temp Pulse Resp BP Pulse Ox
98.0 F 76 20 142/76 98
10/29/24 14:39 10/29/24 21:00 10/29/24 21:00 10/29/24 21:00 10/29/24 21:00
<Nestor Gale PA-C - Last Filed: 10/29/24 18:54>
MDM/Problems Addressed
Differential Diagnosis Includes:
Patient was slight headache elevated blood pressure reading upfront and an episode of dizziness. Dizziness has since resolved. Workup so far including negative labs. EKG shows sinus rhythm with 82 rate and no ischemic changes
No neurologic deficit on exam. Blood pressure has improved. Will order CT of head for reassurance
<Dorothy Galindo PA-C - Last Filed: 10/29/24 22:37>
*Critical Care Note
Total Time (30-74mins, 75-104mins- exclusive of procedures): Not Applicable
<Dorothy Galindo PA-C - Last Filed: 10/29/24 22:37>
Update Note
Update Note:
I received patient in sign out awaiting CT head results. CT head is negative for acute intracranial abnormalities. CT shows incidental finding of 'Slight parotid region soft tissue asymmetry which is most likely positional, head slightly tilted.
Suggest elective return follow-up Head CT, head not tilted for confirmation as parotid region mass on the right cannot be entirely excluded.' Findings discussed with patient. She denies any parotid fullness and no obvious asymmetry noted on exam.
Her dizziness has resolved and she is eating a boxed lunch on reassessment. No indication for hospitalization at this time. She was advised to f/u with her PCP and was discharged in stable condition.
ED Attending Note
<Nestor Gale PA-C - Last Filed: 10/29/24 18:54>
-
Portions of this chart may have been created with voice recognition software.� Occasional wrong word or��sound alike� substitutions may have occurred due to the inherent limitations of voice recognition software.
Discharge Plan
Departure
Patient Disposition: Home (Routine Discharge)
Date of Disposition: 10/29/24
Time of Disposition: 20:37
Patient with high blood pressure during this ER visit?: Yes
Discharge Problem:
Dizziness
Instructions: Dizziness
Prescriptions:
No Action
No Current Medications
0
Referrals:
Judith Borges MD [Family Provider] -
Activity Restrictions/Additional Instructions:
Your CT results: 'Slight parotid region soft tissue asymmetry which is most likely positional, head slightly tilted. Suggest elective return follow-up Head CT, head not tilted for confirmation as parotid region mass on the right cannot be entirely
excluded.'
Please return here for any worsening symptoms. Follow-up with your doctor otherwise to discuss your abnormal CT results.
Interventions
Interventions:
*Risk Screen - Suicide Last Done: 10/29/24 12:45
*General Assessment Last Done: 10/29/24 12:45
*Neglect/Abuse Screening Last Done: 10/29/24 12:45
ED- Fall Risk Assessment Last Done: 10/29/24 19:39
*ED COVID-19 Vaccine History Last Done: 10/29/24 19:40
*Nursing Disposition Last Done: 10/29/24 21:00
ED- Neurological Assessment Last Done: 10/29/24 19:39
ED Swallowing Screen Last Done: 10/29/24 19:39
Discharge Date and Time
Discharge Date/Time: 10/29/24 21:00
Print Language: [place]
[2024-10-29] MEDS: TYLENOL 650 MG PO (17:46)
[2024-10-29 19:20] VITALS: BP 144/75
[2024-10-29 21:00] VITALS: BP 142/76
== END 2024-10-29 21:00 | disposition home or self-care (01) ==
LOC: EMR 12:32
PROVIDERS: Emergency Medicine; EMERGENCY PHYSICIAN Emergency Medicine; FAMILY PHYSICIAN Internal Medicine
DX: R42 Dizziness and giddiness (principal)
CPT/HCPCS: 99284; 70450; 80053; 85025; 93005

== ENCOUNTER 2025-08-27 13:04 | Emergency (ER) | payer MEDICARE, OTHER, SELFPAY ==
[2025-08-27 13:12] VITALS: BP 150/69
[2025-08-27 13:28] LABS: Hematocrit 39.9 % (37.0-47.0); Hemoglobin 13.2 g/dL (12.0-16.0); Mean Corp Hgb Conc. 33.1 g/dL (33.0-37.0); Mean Corpuscular Volume 96.6 fL (81.0-99.0); Nucleated Red Blood Cells % 0 %; Platelet Count 261 10^3/uL (130-400); Red Cell Dist. Width 12.4 % (11.5-14.5)
[2025-08-27 13:45] LABS: ALT (SGPT) 15 U/L (0-35); AST (SGOT) 26 U/L (14-36); Albumin 4.5 g/dl (3.5-5.0); Alkaline Phosphatase 45 U/L (38-126); Blood Urea Nitrogen 13 mg/dl (7-17); Calcium 9.5 mg/dl (8.4-10.2); Carbon Dioxide 32 mmol/L (22-30); Chloride 102 mmol/L (98-107); Glucose 84 mg/dl (70-99); Potassium 4.5 mmol/L (3.5-5.1); Sodium 136 mmol/L (135-145); Total Protein 7.7 g/dl (6.3-8.2); eGFR > 60.00
[2025-08-27 13:57] LABS: Troponin I 0.014 ng/ml
[2025-08-27 15:33] VITALS: BP 148/68
--- NOTE | 2025-08-27 15:55 | ED.GENMED ---
History of Present Illness
General
Chief Complaint: Chest Pain
Source: patient
Exam Limitations: none
Time Seen by Provider: 08/27/25 15:42
Nursing documentation reviewed up to this point in time: agreed with
History of Present Illness
History of Present Illness:
Patient to the emergency department from urgent care for evaluation of left-sided chest pain. Pain is located on the left upper lateral chest wall. She states the pain started over the weekend. She is able to reproduce the pain with movement and
with palpation. She denies any history of known trauma. She does admit to using frequently lifting heavy objects. She denies any shortness of breath nausea vomiting or diaphoresis. No prior history of same. Pain does not radiate. She was
evaluated at urgent care this morning and advised to come to the ED with concerns for possible EKG changes. Brought self to the emergency department for evaluation.
Past History
Past History
ED Past Medical History: Hypercholesterolemia
Review of Systems
Review of Systems
Allergies reviewed?: Yes
All Other Systems: ROS reviewed and negative except as documented in HPI and ROS
Constitutional: Reports no symptoms
EENT: Reports no symptoms
Respiratory: Reports no symptoms
Cardiac: Reports no symptoms
ABD/GI: Reports no symptoms
: Reports no symptoms
Musculoskeletal: Reports other (Pain to left anterior upper lateral chest wall)
Skin: Reports no symptoms
Neurological: Reports no symptoms
Psychiatric: Reports no symptoms
Phy Exam
General Physical Exam
General Presentation: well appearing and no apparent distress
General age: appears stated age
General Skin: warm and dry
General Habitus: normal
General Mental: alert
Cardiovascular Exam
Cardiovascular Exam: regular rate/rhythm and no edema
Pulmonary Exam
Pulmonary Exam: lungs clear and no respiratory distress
Chest Wall: Left anterior: tenderness
Musculoskeletal Exam
Musculoskeletal Exam: full ROM, neuro vasc intact and other (Pain to left upper anterior lateral chest wall. Pain is reproducible with palpation and movement. No bruising redness or swelling noted)
Skin Exam
Skin Exam: normal color, warm/dry and no rash
Psychiatric Exam
Psychiatric Exam: normal mood/affect
Scores
Heart Score for Chest Pain Patients
STEMI patient?: No
History: Slightly or Non-Suspicious
ECG: Normal
Age: >/= 65 years
Risk Factors: No Risk Factors
Troponin: </= Normal Limit
Heart Score for Chest Pain Patients: 2
Heart Score Risk: 2.5% MACE over next 6 weeks
Course
Orders/Labs/Results
Orders:
Orders
08/27/25 13:05
Electrocardiogram (*1) Urgent
Reason for Study: Chest Pain
EKG- Treatment ONCE
08/27/25 13:20
Complete Blood Count/With Diff Urgent
Comprehensive Metabolic Panel Urgent
Troponin I Urgent
08/27/25 15:31
CR Chest - 2 Views Urgent
Comment:
Reason For Exam: chest pain
Abnormal Lab Results
08/27/25
13:20
RBC 4.13 L 10^6/uL
(4.20-5.40)
MCH 32.0 H pg
(27.0-31.0)
Absolute Neuts (auto) 6.6 H 10^3/uL
(1.4-6.5)
Absolute Monos (auto) 1.0 H 10^3/uL
(0.1-0.6)
Lymphocytes % 17.3 L %
(20.5-51.1)
Monocytes % 10.5 H %
(1.7-9.3)
Carbon Dioxide 32 H mmol/L
(22-30)
08/27/25 13:20
08/27/25 13:20
Vital Signs
Initial and Last Documented VS:
Initial Vital Signs
Temp Pulse Resp BP Pulse Ox
97.5 F 89 16 150/69 100
08/27/25 13:12 08/27/25 13:12 08/27/25 13:12 08/27/25 13:12 08/27/25 13:12
Last Documented Vital Signs
Temp Pulse Resp BP Pulse Ox
97.5 F 78 14 150/69 97
08/27/25 13:12 08/27/25 15:34 08/27/25 15:34 08/27/25 13:12 08/27/25 15:33
*Radiology
Radiology exam reviewed: radiology read reviewed
*Pulse Oximetry
SaO2: 97
Oxygen Mode of Delivery: Room air
Patient hypoxic: no
*Critical Care Note
Total Time (30-74mins, 75-104mins- exclusive of procedures): Not Applicable
Update Note
Update Note:
Patient to the emergency department for evaluation of left upper lateral anterior chest wall pain. Symptoms started over this past weekend. Pain is reproducible with palpation and movement. This she denies any history of trauma. Lungs are clear
to auscultation. Pulse ox is 99% on room air. EKG reviewed, NSR. Troponin is negative. Patient presentation consistent with musculoskeletal cause. Will recommend ice and Nsaids. He will be discharged home will follow-up with her family doctor.
She was given instructions on signs and symptoms to return to the emergency department and she was agreeable with this plan.
ED Attending Note
-
Portions of this chart may have been created with voice recognition software.� Occasional wrong word or��sound alike� substitutions may have occurred due to the inherent limitations of voice recognition software.
Discharge Plan
Departure
Patient Disposition: Home (Routine Discharge)
Date of Disposition: 08/27/25
Time of Disposition: 15:56
Patient with high blood pressure during this ER visit?: No
Condition: Good
Covid-19: Not Applicable
Discharge Problem:
Chest wall pain
Instructions: Ibuprofen, Cold therapy for pain, Musculoskeletal Pain
Prescriptions:
No Action
No Current Medications
0
Activity Restrictions/Additional Instructions:
Follow-up with your family doctor in 1 to 2 days. Return to the emergency department immediately for any changes in/worsening of your symptoms.
Interventions
Interventions:
*Risk Screen - Suicide Last Done: 08/27/25 15:54
*General Assessment Last Done: 08/27/25 15:54
*Neglect/Abuse Screening Last Done: 08/27/25 15:54
*ED COVID-19 Vaccine History Last Done: 08/27/25 15:54
*ED Influenza Vaccine History Last Done: 08/27/25 15:54
ED- Cardiac Assessment Last Done: 08/27/25 15:54
Discharge Date and Time
Print Language: MOHAWK
== END 2025-08-27 16:10 | disposition home or self-care (01) ==
LOC: EMR 13:04
PROVIDERS: EMERGENCY PHYSICIAN Emergency Medicine; FAMILY PHYSICIAN Internal Medicine
DX: R07.89 Other chest pain (principal); E78.00 Pure hypercholesterolemia, unspecified
CPT/HCPCS: 99285; 71046; 80053; 84484; 85025; 93005

== ENCOUNTER 2025-08-31 09:48 | Emergency (ER) | payer MEDICARE, OTHER, SELFPAY ==
[2025-08-31 09:52] VITALS: BP 141/71
--- NOTE | 2025-08-31 09:59 | ED.GENMED ---
History of Present Illness
General
Chief Complaint: Chest Pain
Source: patient
Exam Limitations: none
Time Seen by Provider: 08/31/25 09:52
History of Present Illness
History of Present Illness:
75-year-old female presents via EMSfrom home where she lives by herself with complaints of chest pain. The pain started this morning and is going from left to right and is made worse with breathing. She was here 4 days ago thought to have a
musculoskeletal chest wall pain as she injured her upper chest/armpit area on a car seat getting her grandson buckled in. Doing well all week up until this morning she developed more pain. She denies any recent travel or surgery. No leg swelling
or calf pain. She is not anticoagulated. She is fairly healthy otherwise
Past History
Past History
ED Past Medical History: Hypercholesterolemia
Phy Exam
Physical Exam
Physical Exam:
General: Well-appearing female no acute respiratory distress
HEENT: Normal cephalic atraumatic
Heart: Regular rate and rhythm
Lungs: Clear no wheeze
Abdomen is soft nontender
Musculoskeletal exam: The patient is tender over the anterior chest wall bilaterally
Extremities: No cyanosis or edema
Scores
Heart Score for Chest Pain Patients
STEMI patient?: No
History: Slightly or Non-Suspicious
ECG: Normal
Age: >/= 65 years
Risk Factors: No Risk Factors
Troponin: </= Normal Limit
Heart Score for Chest Pain Patients: 2
Heart Score Risk: 2.5% MACE over next 6 weeks
Course
Orders/Labs/Results
Orders:
Orders
08/31/25 09:52
Electrocardiogram (*1) Urgent
Reason for Study: Chest Pain
EKG- Treatment ONCE
08/31/25 09:59
CT Chest PE Study Urgent
Comment:
Reason For Exam: pleuritic chest pain
08/31/25 10:05
Complete Blood Count/With Diff Urgent
Comprehensive Metabolic Panel Urgent
Troponin I Urgent
Abnormal Lab Results
08/31/25
10:05
RBC 4.12 L 10^6/uL
(4.20-5.40)
MCHC 32.4 L g/dL
(33.0-37.0)
Monocytes % 10.1 H %
(1.7-9.3)
Carbon Dioxide 33 H mmol/L
(22-30)
Creatinine 0.5 L mg/dL
(0.6-1.0)
08/31/25 10:05
08/31/25 10:05
Vital Signs
Initial and Last Documented VS:
Initial Vital Signs
Temp Pulse Resp BP Pulse Ox
97.9 F 76 20 141/71 99
08/31/25 09:52 08/31/25 09:52 08/31/25 09:52 08/31/25 09:52 08/31/25 09:52
Last Documented Vital Signs
Temp Pulse Resp BP Pulse Ox
97.9 F 76 20 141/71 99
08/31/25 09:52 08/31/25 09:52 08/31/25 09:52 08/31/25 09:52 08/31/25 09:52
MDM/Problems Addressed
Differential Diagnosis Includes:
Patient with chest discomfort. Consider continuation of prior musculoskeletal chest wall pain versus PE versus ACS or dissection
Vital signs are stable. Will check labs EKG and troponin, given the recent visit and increased pain now that is pleuritic will order CAT scan of the chest to evaluate for PE
*Pulse Oximetry
Patient hypoxic: no
*Critical Care Note
Total Time (30-74mins, 75-104mins- exclusive of procedures): Not Applicable
Update Note
Update Note:
EKG shows sinus rhythm with rate of 69 no ischemic changes
Chest CT shows no evidence of pulmonary embolism lungs are clear but there is some thickening of the esophagus to suggest esophagitis. Will recommend holding off on NSAIDs for now and start PPI. No indication for admission. Stable for discharge
ED Attending Note
-
Portions of this chart may have been created with voice recognition software.� Occasional wrong word or��sound alike� substitutions may have occurred due to the inherent limitations of voice recognition software.
Discharge Plan
Departure
Patient Disposition: Home (Routine Discharge)
Date of Disposition: 08/31/25
Time of Disposition: 12:07
Patient with high blood pressure during this ER visit?: No
Discharge Problem:
Chest pain
Instructions: Acid Reflux and GERD in Adults (DC), Costochondritis (DC)
Prescriptions:
New
omeprazole 40 mg capsule,delayed release(DR/EC)
40 mg PO DAILY Qty: 14 0RF
Referrals:
Judith Borges MD [Family Provider, Internal Medicine]
Activity Restrictions/Additional Instructions:
Use Tylenol if needed for pain. Start omeprazole daily. Follow-up with your doctor. Return here if needed. As discussed it looks like your esophagus is slightly inflamed on the CAT scan
Interventions
Interventions:
*Risk Screen - Suicide Last Done: 08/31/25 09:52
*General Assessment Last Done: 08/31/25 09:52
*Neglect/Abuse Screening Last Done: 08/31/25 09:52
Discharge Date and Time
Print Language: LATVIAN
[2025-08-31 10:12] LABS: Hematocrit 39.2 % (37.0-47.0); Hemoglobin 12.7 g/dL (12.0-16.0); Mean Corp Hgb Conc. 32.4 g/dL (33.0-37.0); Mean Corpuscular Volume 95.1 fL (81.0-99.0); Nucleated Red Blood Cells % 0 %; Platelet Count 255 10^3/uL (130-400); Red Cell Dist. Width 12.5 % (11.5-14.5)
[2025-08-31 10:25] LABS: ALT (SGPT) 13 U/L (0-35); AST (SGOT) 19 U/L (14-36); Albumin 4.1 g/dl (3.5-5.0); Alkaline Phosphatase 38 U/L (38-126); Blood Urea Nitrogen 10 mg/dl (7-17); Calcium 9.2 mg/dl (8.4-10.2); Carbon Dioxide 33 mmol/L (22-30); Chloride 103 mmol/L (98-107); Estimated Creatinine Clearance 67 ml/min; Glucose 93 mg/dl (70-99); Potassium 4.0 mmol/L (3.5-5.1); Sodium 138 mmol/L (135-145); Total Protein 7.1 g/dl (6.3-8.2); eGFR > 60.00
[2025-08-31 10:36] LABS: Troponin I < 0.012 ng/ml
[2025-08-31 11:00] VITALS: BP 118/82
[2025-08-31 12:00] VITALS: BP 155/96
== END 2025-08-31 12:45 | disposition home or self-care (01) ==
LOC: EMR 09:48
PROVIDERS: EMERGENCY PHYSICIAN Emergency Medicine; FAMILY PHYSICIAN Internal Medicine
DX: R07.89 Other chest pain (principal); E78.00 Pure hypercholesterolemia, unspecified
CPT/HCPCS: 99284; 71275; 80053; 84484; 85025; 93005; Q9967

== ENCOUNTER 2025-09-02 08:41 | Emergency (ER) | payer MEDICARE, OTHER, SELFPAY ==
[2025-09-02 09:24] VITALS: BP 150/64
--- NOTE | 2025-09-02 09:32 | ED.GENMED ---
History of Present Illness
General
Chief Complaint: Extremity Pain (non-traumatic)
Source: patient
Time Seen by Provider: 09/02/25 09:20
History of Present Illness
History of Present Illness:
75-year-old female with past medical history of hyperlipidemia presenting to the emergency department for evaluation of a paresthesia sensation in her left hand that she noticed upon awakening this morning around 8 AM, symptoms now mostly resolved.
Patient was concerned because last week she was in the emergency department for a pain in her chest that while no specific etiology was found she states that she was told it was not her heart. Patient does note that just prior to the pain
developing in her chest she had injured her left axillary region when she bumped into an object within her home and has had some mild discomfort to the left axillary area since but notes the last couple of days she really has not had any pain.
There is no other anginal equivalents, fevers or infectious symptoms, focal weakness or numbness or any other concerns. Patient states that she is 'very healthy and has not been in the hospital since the of her child over 40 years ago'.
Social history noncontributory. Family history was negative for any cardiac etiologies.
Past History
Past History
ED Past Medical History: Hypercholesterolemia
ED Past Surgical History: None
Social History
Tobacco: Non-smoker
Alcohol: None
Drug: None
Personal:
Living: with family
Review of Systems
Review of Systems
All Other Systems: ROS reviewed and negative except as documented in HPI and ROS
Phy Exam
Physical Exam
Physical Exam:
GENERAL: Alert , in no apparent distress, smiling and pleasant
HEAD: Normocephalic atraumatic
EYE: conjunctiva clear
NECK: Supple
ENT: o/p clr, mmm.
CARDIAC: Regular rate and rhythm
LUNGS: Clear breath sounds bilaterally, no acute respiratory distress, no wheezes/rales/rhonchi
NEUROLOGICAL: Alert and oriented
SKIN: Warm and dry, skin intact.
MUSCULOSKELETAL: well perfused. FROM b/l UE. Easily palpable radial pulses b/l. CR < 2 sec. Sensation grossly intact to light touch throughout
PSYCH: Normal and appropriate interaction.
Scores
NIH Stroke Score
Level of Consciousness: 0 - Alert
LOC Questions: 0-Answers both correctly
LOC Commands: 0-Performs both correctly
Best Horizontal Gaze: 0-Normal
Visual Koch: 0=Normal, no visual loss
Facial Palsy: 0=Normal, symmetrical
Motor - Right Arm: 0=No drift 10 seconds
Motor - Left Arm: 0=No drift 10 seconds
Motor - Right Le-No drift 5 seconds
Motor - Left Le-No drift 5 seconds
Limb Ataxia: 0-Absent
Sensation: 0-Normal
Best Language: 0-No aphasia
Dysarthria: 0-Normal
Extinction and Inattention: 0-No abnormality
NIH Total Score:: 0
Heart Failure Risk
Heart Failure Risk Score: Not Applicable
Heart Score for Chest Pain Patients
STEMI patient?: Not applicable
Withdrawal Assessment of Alcohol
Withdrawal Assessment Completed?: Not applicable
Course
Orders/Labs/Results
Orders:
Orders
09/02/25
Electrocardiogram (*1) Stat
Reason for Study: Chest Pain
Comment: DONE
09/02/25 08:53
EKG [Electrocardiogram (*1)] Urgent
Reason for Study: Chest Pain
EKG- Treatment ONCE
09/02/25 09:19
Cardiac Monitoring- Treatment ONCE
IV Insert/Care/Rem.- Treatment PRN
09/02/25 09:40
Complete Blood Count/With Diff Urgent
Comprehensive Metabolic Panel Urgent
Troponin I Urgent
09/02/25 12:20
Troponin I Urgent
Abnormal Lab Results
09/02/25
09:40
Carbon Dioxide 32 H mmol/L
(22-30)
Creatinine 0.5 L mg/dL
(0.6-1.0)
09/02/25 09:40
09/02/25 09:40
Vital Signs
Initial and Last Documented VS:
Initial Vital Signs
Temp Pulse Resp Pulse Ox
98 F 86 16 98
09/02/25 08:51 09/02/25 08:51 09/02/25 08:51 09/02/25 08:51
Last Documented Vital Signs
Temp Pulse Resp BP Pulse Ox
98 F 70 18 148/70 100
09/02/25 08:51 09/02/25 13:00 09/02/25 13:16 09/02/25 13:00 09/02/25 13:00
MDM/Problems Addressed
Differential Diagnosis Includes:
Cervical radiculopathy
Brachial plexus injury
Ulnar nerve palsy
Carpal Tunnel
ACS
Dissection
Electrolyte imbalance
CVA/TIA
MDM/Problems Addressed:
75-year-old female presenting to the ER for evaluation of left hand/wrist paresthesia upon awakening this morning, symptoms now mostly resolved. Seen in the ER last week for chest discomfort with an unremarkable workup. She does note that there
was minor injury to the left axillary region at the onset of her pain last week and has had some intermittent pain since then. No fevers or infectious symptoms. Exam otherwise reassuring. Will repeat cardiac workup although my suspicion for ACS
is quite low. Doubt CVA/TIA. Given symptoms all seem to occur shortly after a minor trauma/injury I do suspect it to be more related to a traumatic nature although without any significant severity.
*Pulse Oximetry
SaO2: 98
Oxygen Mode of Delivery: Room air
Patient hypoxic: no
*EKG
Heart Rate: 74
Rate: normal
Rhythm: sinus
Ischemia: no ischemia
*Poultry Helper Interpretation
Rate: normal
Heart Rate: 74
Rhythm: sinus
*Critical Care Note
Total Time (30-74mins, 75-104mins- exclusive of procedures): Not Applicable
Data Reviewed
Review of Other/Old Records Reveals: Labs and Records
Patient Management
Escalation/DeEscalation of care consider admission/obs:
Repeat troponin negative, patient asymptomatic. Stable for discharge home and outpatient follow-up with primary care provider. Aware of return precautions
ED Attending Note
-
Portions of this chart may have been created with voice recognition software.� Occasional wrong word or��sound alike� substitutions may have occurred due to the inherent limitations of voice recognition software.
Discharge Plan
Departure
Patient Disposition: Home (Routine Discharge)
Date of Disposition: 09/02/25
Time of Disposition: 12:59
Patient with high blood pressure during this ER visit?: Yes
Discharge Problem:
Paresthesia
Instructions: Peripheral neuropathy
Prescriptions:
No Action
omeprazole 40 mg capsule,delayed release(DR/EC)
40 mg PO DAILY Qty: 14 0RF
Referrals:
Judith Borges MD [Family Provider, Internal Medicine]
Interventions
Interventions:
*Risk Screen - Suicide Last Done: 09/02/25 08:51
*General Assessment Last Done: 09/02/25 09:45
*Neglect/Abuse Screening Last Done: 09/02/25 08:51
*ED- Fall Risk Assessment Last Done: 09/02/25 09:45
*ED COVID-19 Vaccine History Last Done: 09/02/25 09:45
*ED Influenza Vaccine History Last Done: 09/02/25 09:45
*Nursing Disposition Last Done: 09/02/25 13:16
ED-Skin Assessment Last Done: 09/02/25 09:45
ED-Peripheral Vascular Assessment Last Done: 09/02/25 09:45
ED-Musculoskeletal Assessment Last Done: 09/02/25 09:45
Discharge Date and Time
Discharge Date/Time: 09/02/25 13:17
Print Language: ALBANIAN
[2025-09-02 09:45] VITALS: BMI 20.5
[2025-09-02 10:00] VITALS: BP 145/69
[2025-09-02 10:03] LABS: Hematocrit 42.2 % (37.0-47.0); Hemoglobin 14.0 g/dL (12.0-16.0); Mean Corp Hgb Conc. 33.2 g/dL (33.0-37.0); Mean Corpuscular Volume 93.4 fL (81.0-99.0); Nucleated Red Blood Cells % 0 %; Platelet Count 263 10^3/uL (130-400); Red Cell Dist. Width 12.4 % (11.5-14.5)
[2025-09-02 10:13] LABS: ALT (SGPT) 13 U/L (0-35); AST (SGOT) 19 U/L (14-36); Albumin 4.5 g/dl (3.5-5.0); Alkaline Phosphatase 42 U/L (38-126); Blood Urea Nitrogen 14 mg/dl (7-17); Calcium 9.6 mg/dl (8.4-10.2); Carbon Dioxide 32 mmol/L (22-30); Chloride 102 mmol/L (98-107); Estimated Creatinine Clearance 68 ml/min; Glucose 96 mg/dl (70-99); Potassium 4.1 mmol/L (3.5-5.1); Sodium 138 mmol/L (135-145); Total Protein 6.9 g/dl (6.3-8.2); eGFR > 60.00
[2025-09-02 10:25] LABS: Troponin I < 0.012 ng/ml
[2025-09-02 11:00] VITALS: BP 140/74
[2025-09-02 12:00] VITALS: BP 148/70
[2025-09-02 12:57] LABS: Troponin I < 0.012 ng/ml
[2025-09-02 13:00] VITALS: BP 148/70
== END 2025-09-02 13:17 | disposition home or self-care (01) ==
LOC: EMR 08:41
PROVIDERS: Physician Assistant Medical; EMERGENCY PHYSICIAN Emergency Medicine; FAMILY PHYSICIAN Internal Medicine
DX: R20.2 Paresthesia of skin (principal); E78.00 Pure hypercholesterolemia, unspecified
CPT/HCPCS: 99284; 80053; 84484; 85025; 93005

== ENCOUNTER 2025-09-02 22:22 | Emergency (ER) | payer MEDICARE, OTHER, SELFPAY ==
[2025-09-02 22:26] VITALS: BP 174/90
[2025-09-02 22:42] LABS: Hematocrit 40.2 % (37.0-47.0); Hemoglobin 13.2 g/dL (12.0-16.0); Mean Corp Hgb Conc. 32.8 g/dL (33.0-37.0); Mean Corpuscular Volume 95.5 fL (81.0-99.0); Nucleated Red Blood Cells % 0 %; Platelet Count 255 10^3/uL (130-400); Red Cell Dist. Width 12.5 % (11.5-14.5)
[2025-09-02 22:57] LABS: ALT (SGPT) 13 U/L (0-35); AST (SGOT) 20 U/L (14-36); Albumin 4.4 g/dl (3.5-5.0); Alkaline Phosphatase 36 U/L (38-126); Blood Urea Nitrogen 20 mg/dl (7-17); Calcium 9.6 mg/dl (8.4-10.2); Carbon Dioxide 31 mmol/L (22-30); Chloride 101 mmol/L (98-107); Glucose 94 mg/dl (70-99); Potassium 4.1 mmol/L (3.5-5.1); Sodium 135 mmol/L (135-145); Total Protein 7.4 g/dl (6.3-8.2); eGFR > 60.00
[2025-09-02 23:07] LABS: Troponin I < 0.012 ng/ml
[2025-09-03 00:04] VITALS: BP 161/88
[2025-09-03 01:00] VITALS: BP 154/79
[2025-09-03 02:00] VITALS: BP 156/85
--- NOTE | 2025-09-03 02:56 | DOWNTIME ---
There was a [employer] Downtime on 09/03/2025 from 0100 to 09/03/2025 at 0255. Downtime documentation of patient's care, including medication administrations, has been reconciled in the electronic record per guidelines. Refer to the
patient's paper chart under the miscellaneous tab to see printed paper medication records and downtime forms.
--- NOTE | 2025-09-03 03:47 | ED.GENMED ---
History of Present Illness
General
Chief Complaint: Chest Pain
Source: patient
Time Seen by Provider: 09/03/25 02:56
Nursing documentation reviewed up to this point in time: agreed with
History of Present Illness
History of Present Illness:
Note:
CHIEF COMPLAINT(S)
Chest pain and difficulty taking a deep breath.
HISTORY OF PRESENT ILLNESS
The patient is a 75-year-old female who presented with complaints of chest pain and difficulty breathing deeply. Initially, the patient reported experiencing achy pain in the chest and soreness under the arm after leaning over to secure her grandson
in a car seat. This incident reportedly occurred a few days prior to presentation. She has since sought medical care for these symptoms and was evaluated at least two other times.
During one of these previous visits, the patient was discharged with a diagnosis of gastroesophageal reflux disease (GERD), despite her assertions that she has never experienced stomach pain or symptoms related to acid reflux previously. The patient
received discharge paperwork referencing a computed tomography (CT) scan, though she reports that the scan was not actually performed.
On the morning of the current presentation, the patient experienced a recurrence of chest tightness, and by the evening felt a significant inability to take a deep breath, prompting her return to the emergency department. She describes the chest
pain as tight and states, 'I just couldn't take a deep breath,' expressing concern that 'something wasn't right.' She does not believe she is having a heart attack but feels the symptoms are unusual and warrant further investigation.
The patient reports no recent surgeries and was anticipating a brief visit given her previous medical consultations did not yield concerning findings, but she returned due to the persistent symptoms.
EXTERNAL RECORDS REVIEWED
According to the patient, previous discharge paperwork referenced a CT scan, though she denies having undergone the procedure.
PHYSICAL EXAM
General: Alert, no acute distress.
Skin: Warm, dry.
Head: Normocephalic, atraumatic.
Neck: Supple, trachea midline.
Eye Ears, nose, mouth and throat: Oral mucosa moist.
Cardiovascular: Normal peripheral perfusion, No edema.
Respiratory: Respirations are non-labored.
Gastrointestinal: Abdomen nondistended
Back: Normal range of motion, Normal alignment.
Musculoskeletal: Normal ROM, normal strength.
Neurological: Alert and oriented to person, place, time, and situation, No focal neurological deficit observed.
Psychiatric: Cooperative, appropriate mood & affect.
PLAN
The plan is to review previous imaging studies if available and further investigate current symptoms for any underlying cardiac or pulmonary conditions.
DIFFERENTIAL DIAGNOSIS
The Differential Diagnosis includes, in no particular order and is not limited to:
1. Musculoskeletal chest pain
2. Costochondritis
3. Gastroesophageal reflux disease (GERD)
4. Angina pectoris
5. Acute coronary syndrome
6. Pleural effusion
7. Pulmonary embolism
8. Pneumothorax
9. Anxiety or panic disorder
10. Esophageal spasm
CARE-UPDATE
09/03/25 - 02:07
[address] scan for pulmonary embolism was conducted within the last two days and returned negative. A chest X-ray was performed on the . No further imaging indicated at this time based on current findings.
Disposition:
SUMMARY OF ENCOUNTER
A 75-year-old female presented to the emergency department with complaints of chest pain and difficulty breathing deeply. She had previously been seen on 08/31 and 09/02 for similar symptoms. On this visit, her chest pain had recurred and was
associated with an increased respiratory rate and chest tightness.
DISPOSITION
Patient to be discharged home.
ASSESSMENT
The patient displayed symptoms suggestive of chest pain. Previously, a CT scan was conducted and returned negative for pulmonary embolism, and a chest X-ray on 08/27 showed normal results. Troponin levels were also read as normal upon review.
PLAN
To discharge the patient home, with instructions to follow up as needed should symptoms persist or worsen.
INDEPENDENT REVIEW OF LABS AND INTERPRETATION OF TESTS
My independent review of the chest X-ray is normal.
My independent review of troponin is normal.
MEDICAL DECISION MAKING
-Complexity of Data Reviewed: Chronic conditions affecting care. Differential diagnosis includes musculoskeletal chest pain, costochondritis, gastroesophageal reflux disease (GERD), angina pectoris, acute coronary syndrome, pleural effusion,
pulmonary embolism, pneumothorax, anxiety or panic disorder, and esophageal spasm.
-Data:
Category 1
Clinical information was obtained from an independent historian as the patient referenced information from past consultations and discharge paperwork.
Category 2
My independent interpretation of the chest X-ray is normal.
-Risk:
Consideration of Admission/Observation: Escalation of care including admission/observation was considered given the complexity and risk of the patients presenting complaint and exam findings. However, ultimately I feel the patient is safe for
outpatient management with close follow up. Reasoning: Work-up reassuring, does not reveal any acute life/organ threatening processes, patients symptoms well controlled upon reevaluation, reexamination is reassuring, vitals are stable, patient
agreeable with discharge, and reliable for follow-up.
DIAGNOSIS
Chest pain, unspecified (R07.9)
Past History
Past History
ED Past Medical History: Hypercholesterolemia
ED Past Surgical History: None
Social History
Tobacco: Non-smoker
Alcohol: None
Drug: None
Personal:
Living: with family
Phy Exam
Physical Exam
Physical Exam:
.
Scores
Heart Score for Chest Pain Patients
STEMI patient?: No
History: Slightly or Non-Suspicious
ECG: Normal
Age: >/= 65 years
Risk Factors: No Risk Factors
Troponin: </= Normal Limit
Heart Score for Chest Pain Patients: 2
Heart Score Risk: 2.5% MACE over next 6 weeks
Course
Orders/Labs/Results
Orders:
Orders
09/02/25 22:24
Electrocardiogram (*1) Urgent
Reason for Study: Chest Pain
EKG- Treatment ONCE
09/02/25 22:34
Complete Blood Count/With Diff Urgent
Comprehensive Metabolic Panel Urgent
Troponin I Urgent
09/03/25
CR Chest - 2 Views Urgent
Reason For Exam: DYSPNEA
Abnormal Lab Results
09/02/25
22:34
MCH 31.4 H pg
(27.0-31.0)
MCHC 32.8 L g/dL
(33.0-37.0)
Absolute Monos (auto) 0.9 H 10^3/uL
(0.1-0.6)
Monocytes % 10.2 H %
(1.7-9.3)
Carbon Dioxide 31 H mmol/L
(22-30)
BUN 20 H mg/dl
(7-17)
Creatinine 0.5 L mg/dL
(0.6-1.0)
Alkaline Phosphatase 36 L U/L
(38-126)
09/02/25 22:34
09/02/25 22:34
Vital Signs
Initial and Last Documented VS:
Initial Vital Signs
Temp Pulse Resp BP Pulse Ox
98 F 99 16 174/90 99
09/02/25 22:26 09/02/25 22:26 09/02/25 22:26 09/02/25 22:26 09/02/25 22:26
Last Documented Vital Signs
Temp Pulse Resp BP Pulse Ox
98 F 72 16 156/80 100
09/02/25 22:26 09/03/25 04:12 09/03/25 04:12 09/03/25 04:12 09/03/25 04:12
*Radiology
Radiology exam reviewed: all reviewed NAD by ED Provider
*Pulse Oximetry
SaO2: 100
Oxygen Mode of Delivery: Room air
Patient hypoxic: no
*Critical Care Note
Total Time (30-74mins, 75-104mins- exclusive of procedures): Not Applicable
ED Attending Note
-
Portions of this chart may have been created with voice recognition software.� Occasional wrong word or��sound alike� substitutions may have occurred due to the inherent limitations of voice recognition software.
Discharge Plan
Departure
Patient Disposition: Home (Routine Discharge)
Date of Disposition: 09/03/25
Time of Disposition: 03:48
Patient with high blood pressure during this ER visit?: Yes
Discharge Problem:
Chest pain
Instructions: Chest Pain PCP Follow Up
Prescriptions:
No Action
omeprazole 40 mg capsule,delayed release(DR/EC)
40 mg PO DAILY Qty: 14 0RF
Referrals:
Judith Borges MD [Family Provider, Internal Medicine]
Activity Restrictions/Additional Instructions:
Thank You for choosing [facility].
It was a pleasure meeting you and taking part in your care. We hope for your continued healing and wellness.
Please read discharge instructions in their entirety. However, they are for general education and may not describe your exact diagnosis at discharge. Information on your ER visit and medical conditions were discussed with you along with appropriate
follow up information...
If indicated, please take your medications as instructed and indicated on discharge paperwork.
Please schedule a follow up appointment as directed. Call to schedule an appointment
Please return to the emergency department with ANY change in, persisting, or worsening of symptoms. If any of your symptoms do not improve, or persist, or become more severe within 6-12 hours, please return to the emergency department for further
care.
Please return to the emergency department if you develop a headache, neck pain/stiffness, fever greater than 100.4F, chest pain, shortness of breath, persistent nausea, vomiting, slurred speech, difficulty walking, numbness/tingling, weakness, signs
of infection or any other symptoms that are worrisome to you.
If you have any questions or concerns please do not hesitate to call the Hospital at .
Interventions
Interventions:
*Risk Screen - Suicide Last Done: 09/02/25 22:29
*General Assessment Last Done: 09/03/25 00:40
*Neglect/Abuse Screening Last Done: 09/02/25 22:29
*ED- Fall Risk Assessment Last Done: 09/03/25 00:40
*ED COVID-19 Vaccine History Last Done: 09/03/25 00:40
*ED Influenza Vaccine History Last Done: 09/03/25 00:40
*Nursing Disposition Last Done: 09/03/25 04:12
ED- Cardiac Assessment Last Done: 09/03/25 00:37
Discharge Date and Time
Discharge Date/Time: 09/03/25 05:45
Print Language: FRENCH
[2025-09-03 04:12] VITALS: BP 156/80
== END 2025-09-03 05:45 | disposition home or self-care (01) ==
LOC: EMR 22:22
PROVIDERS: Emergency Medicine; EMERGENCY PHYSICIAN Student in an Organized Health Care Education/Training Program; FAMILY PHYSICIAN Internal Medicine
DX: R07.9 Chest pain, unspecified (principal); R03.0 Elevated blood-pressure reading, without diagnosis of hypertension; E78.00 Pure hypercholesterolemia, unspecified; K21.9 Gastro-esophageal reflux disease without esophagitis
CPT/HCPCS: 99284; 71046; 80053; 84484; 85025; 93005